=== PATIENT | male | born 1985 | race Caucasian/White ===

== ENCOUNTER 2024-04-02 07:17 | Emergency (ER) | payer OTHER, SELFPAY ==
[2024-04-02 07:21] VITALS: BP 134/84; PULSE 71; TEMP 36.7; O2SAT 99; BMI 22.6
--- NOTE | 2024-04-02 08:16 | ED.GENADUL1 ---
HPI HPI - General Adult General Chief complaint: Dental/Oral Stated complaint: DENTAL, SWOLLEN FACE Time Seen by Provider: 04/02/24 08:03 Source: patient Mode of arrival: walk-in Limitations: no limitations History of Present Illness HPI narrative: Patient is a 38-year-old male who is presenting to the ER with chief complaint of acute on chronic dental pain. Patient has left lower mild to moderate facial swelling. Patient started having pain last evening around 5 PM. Swelling started around 8 to 9 PM last night. Patient did call a couple dentist yesterday trying to get in, he has no scheduled appointment. Patient has not seen a dentist in over 15 years. Patient denies any type of trauma, no injury to the face. No fever or chills. Patient says that he might taste a small amount of pus or bad taste in his mouth in that area. Patient has no difficulty swallowing, no difficulty breathing. No abdominal pain, nausea, vomiting. No chest pain or shortness of breath. No neck pain. No other acute complaints. All systems are negative except as noted/marked. All systems reviewed and otherwise negative. Nurses note and vital signs reviewed and patient is not hypoxic. Nurses notes reviewed and patient is noted to be non-hypoxic. General: The patient is comfortable, alert and oriented x3, well appearing, non toxic in no apparent distress. Head: Atraumatic and normocephalic. Eyes: Normal conjunctiva ENT: The oropharynx is normal. No pharyngeal erythema, uvular edema, tonsillar exudates, asymmetry or trismus. Uvula is midline. Mouth is normal to inspection With the exception of a pain on percussion of the tooth #19 and multiple areas of evidence of dental caries. There is mild to moderate evidence of left-sided facial asymmetry; no abscess formation. Floor of the mouth is soft. No tenderness in the submental or submandibular space. No tongue elevation or deviation. The patient has no evidence of periapical abscess, gingivitis, ANUG or other acute pathology. Airway is patent. Neck: The neck demonstrates normal range of motion. No meningeals signs are present. No stridor. No masses or lymphandenopathy noted. Respiratory: No acute distress, lungs are clear to auscultation, no wheezing, rhonchi, or rales noted. No stridor or retractions are noted. Cardiovascular: Regular rate and rhythm Skin: The skin exam shows no evidence of rashes Neuro: Alert and oriented x4, normal speech Lymphatic: No cervical lymphadenopathy Related Data Previous Rx's ?Medication ?Instructions ?Recorded penicillin V potassium 500 mg 500 mg PO TID 10 days #30 tabs 04/02/24 tablet Allergies Allergy/AdvReac Type Severity Reaction Status Date / Time ibuprofen AdvReac Intermediate Joint Pain Verified 04/02/24 07:25 Opioid HPI Opioid Management Most Recent Opioid Data: No Data to Display PFSH PFSH Social History Little interest or pleasure in doing things: not at all Feeling down, depressed, or hopeless: not at all Exam Constitutional Vital Signs, click to edit/add: Last Vital Signs Temp 98.0 F 04/02/24 07:21 Pulse 71 04/02/24 07:21 Resp 18 04/02/24 07:21 BP 134/84 04/02/24 07:21 Pulse Ox 99 04/02/24 07:21 O2 Del Method Room Air 04/02/24 07:21 Course Vital Signs Vital signs: Vital Signs Temperature 98.0 F 04/02/24 07:21 Pulse Rate 71 04/02/24 07:21 Respiratory Rate 18 04/02/24 07:21 Blood Pressure 134/84 04/02/24 07:21 Pulse Oximetry 99 04/02/24 07:21 Oxygen Delivery Method Room Air 04/02/24 07:21 Temperature 98.0 F 04/02/24 07:21 Pulse Rate 71 04/02/24 07:21 Respiratory Rate 18 04/02/24 07:21 Blood Pressure 134/84 04/02/24 07:21 Pulse Oximetry 99 04/02/24 07:21 Oxygen Delivery Method Room Air 04/02/24 07:21 Medical Decision Making MDM Narrative Medical decision making narrative: Patient was given ice, dental analgesia. Patient was given a dental list. Patient was educated on the importance of ice, also told the max dose of Tylenol is 3000 mg a day. Patient says that he cannot take ibuprofen. Patient was very respectful and thankful for help today, patient was placed on antibiotic prophylactically and patient will follow-up with dentist and call additional dentist today. Local companies were discussed as well including [facility] in [facility]. Patient understands he must see a dentist, patient has a next 5 days off of work. No questions discharge. Discharge Plan Discharge Chief Complaint: Dental/Oral Clinical Impression: Toothache, Dental caries, Atypical face pain Patient Disposition: Home, Self-Care Time of Disposition Decision: 08:12 Condition: Fair Prescriptions / Home Meds: New penicillin V potassium 500 mg tablet 500 mg PO TID 10 Days Qty: 30 0RF Print Language: Mosotho Instructions: Toothache (ED), Atypical Facial Pain (ED) Additional Instructions: Use ice 20 minutes on, 10 minutes off. Do not use heat. Alternate Tylenol; Maximum dose of Tylenol is 3000 mg a day. A dental list has been provided to you. Finish antibiotics. [facility], [facility], or any dental office that could help see and evaluate Referrals: ABBIE ANTONIO [Primary Care Provider] - 1 week
[2024-04-02] MEDS: BENZOCAINE 30 ML, lidocaine HCL 15 ML MM (08:24)
== END 2024-04-02 08:26 | disposition home or self-care (01) ==
PROVIDERS: Emergency Provider Emergency Medicine; PCP Family Medicine
DX: K02.9 Dental caries, unspecified (principal); K08.89 Other specified disorders of teeth and supporting structures; G50.1 Atypical facial pain
CPT/HCPCS: 99283